=== PATIENT | male | born 1995 | race Caucasian/White ===

== ENCOUNTER 2021-09-05 15:56 | Emergency (ER) | payer BC, SELFPAY ==
[2021-09-05 16:10] VITALS: BP 144/90; PULSE 92; RESP 20; TEMP 36.7; O2SAT 97; BMI 20.7
--- NOTE | 2021-09-05 16:48 | HMH.EDUTC ---
[facility] [place] Disposition Clinical Impression: Exposure to COVID-19 virus Disposition: Home, Self-Care Condition on Discharge: Good Instructions: DI for COVID-19 (Suspected or Confirmed ), Preventing the Spread of Coronavirus Discharge Instructions Additional Instructions: *Monitor Temp, Over the counter Motrin or Tylenol as directed/as needed Tylenol every 4 hours and Motrin every 6 hours (as long as your family doctor has told you that you can take it) for fever or pain. and straight to ER if unable to lower temp less than 101.0 after medication given *Warm salt water gargles may help to soothe the throat *Throat Lozenges *Warm fluids like tea with honey may help to soothe the throat *Sleep elevated *Humidifier/Vaporizer Follow up IMMEDIATELY for new or worsening symptoms or no Noticeable improvement over the next 48-72 hours. 911 for difficulty breathing or swallowing You were tested for today for COVID19 your test result should be back in the next 24-48 hours, you may check your results on the [facility] Health Portal if you have trouble logging on you can call support or you will get a call if your results are Positive You was given a handout with instructions for Self Quarantine and Self isolation for while you wait on test results and what to do if they are positive If you are positive the Health Dept will be contacting you also Make sure to take your Vitamins Vit. C Vit D and Zinc if you can take them Referrals: Provider,Referral, [Primary Care Provider] - As needed Forms: Work/School Release Time of Disposition: 16:55 Medical Decision Making - Yadiel Inquiry Pt receiving controlled substance: No Yadiel was queried for this patient: No Vital Signs: 09/05/21 16:10 09/05/21 16:59 Temperature 98.1 F 98.1 F Temperature Source Oral Pulse Rate 92 H Pulse Rate [Left Brachial] 92 H Respiratory Rate 20 20 Blood Pressure 144/90 H Blood Pressure [Left Arm] 144/90 H Blood Pressure Mean [Left Arm] 108 Blood Pressure Source [Left Arm] Automatic Cuff Blood Pressure Position [Left Arm] Sitting 02 Sat by Pulse Oximetry 97 Oxygen Delivery Method Room Air Orders (Tests/Meds): ORDERS Category Date Time Status Covid-19 Nasal PCR ([facility]) Routine Lab 09/05/21 16:22 Received [facility] [place] HPI - General Stated complaint: covid test/treated for symptoms Time Seen by Provider: 09/05/21 16:48 Mode of Arrival: Ambulatory Source of Information: Patient Limitations: No Limitations Description of Symptoms (Recalled from Triage Doc. by RN): PATIENT C/O HEADACHE, FEVER, CHEST CONGESTION, AND METALLIC TASTE IN MOUTH X 5 DAYS. RECENTLY EXPOSED TO COVID HEENT Symptoms (Recalled from RN notes): Yes Resp Symptoms (Recalled from RN notes): Yes Skin Symptoms (Recalled from RN notes): No MS Symptoms (Recalled from RN notes): No Functional Status (Recalled from RN notes): WNL - History of Present Illness Provider Complaint: Patient state that father recently had COVID States that he has started having symptoms States that he feels like he has a bad sinus infection State that also feels like he is congested in his chest States that today he has had fever on and off and continued to feel worse so he came in to get checked - Related Data Home Medications Medication Instructions Recorded Confirmed Gabapentin [Gabapentin 100mg Cap] 100 mg PO HS 09/05/21 09/05/21 Allergies Allergy/AdvReac Type Severity Reaction Status Date / Time No Known Allergies Allergy Verified 09/05/21 16:32 - Worker's Comp Is this a Worker's Comp case?: No [facility] History - Hepatitis A Screen Drug use history?: No High risk sexual behaviors?: No History of sexually transmitted infection?: No Currently employed?: No Childcare worker?: No Do you have indoor plumbing?: Yes Do you have electricity?: Yes Attestation statement:: This patient has been screened for Hepatitis A risk factors. I have reviewed the patient's past medical history:
[2021-09-05 16:59] VITALS: BP 144/90; PULSE 92; RESP 20; TEMP 36.7; O2SAT 97
== END 2021-09-05 17:16 | disposition home or self-care (01) ==
PROVIDERS: Emergency Provider Nurse Practitioner
DX: U07.1 COVID-19 (principal)
CPT/HCPCS: 99202; C9803; G0463; U0003; U0005

== ENCOUNTER 2021-11-28 10:53 | Emergency (ER) | payer BC, SELFPAY ==
[2021-11-28 11:00] VITALS: BP 135/87; PULSE 85; RESP 18; TEMP 36.7; O2SAT 98; BMI 22.9
--- NOTE | 2021-11-28 11:14 | HMH.EDUTC ---
[facility] [place] Disposition Clinical Impression: URI (upper respiratory infection) Qualifiers: URI type: unspecified URI Qualified Code(s): J06.9 - Acute upper respiratory infection, unspecified Disposition: Home, Self-Care Condition on Discharge: Good Instructions: Sore Throat, Sinusitis, Cough, DI for Sinusitis, DI for Cough -- Adult Additional Instructions: *Monitor Temp, Over the counter Motrin or Tylenol as directed/as needed Tylenol every 4 hours and Motrin every 6 hours (as long as your family doctor has told you that you can take it) for fever or pain. and straight to ER if unable to lower temp less than 101.0 after medication given *Warm salt water gargles may help to soothe the throat *Throat Lozenges *Warm fluids like tea with honey may help to soothe the throat *Sleep elevated *Humidifier/Vaporizer Your throat swab was sent for culture. Those results are typically sent to your primary care. Be sure to follow up in 2-3 days with your family doctor/primary care physician if no improvement so they can review those result and treat if necessary. If you don?t have a primary care doctor, I recommend you get one but in the mean time, you will have to return to a walk in clinic Take Benzonate cough pills as prescribed Follow up IMMEDIATELY for new or worsening symptoms or no Noticeable improvement over the next 48-72 hours. 911 for difficulty breathing or swallowing Prescriptions: methylPREDNISolone [Medrol 4mg tab] 4 mg PO DIRECTED #21 tab Transmission Status: Pending to [facility] Azithromycin [Z-Kev 250mg Tab] 250 mg PO DIRECTED #6 tab [facility]: [facility] Referrals: Provider,Referral, [Primary Care Provider] - As needed Forms: Work/School Release Time of Disposition: 11:44 Medical Decision Making - Yadiel Inquiry Pt receiving controlled substance: No Yadiel was queried for this patient: No Vital Signs: 11/28/21 11:00 11/28/21 11:23 Temperature 98.0 F 98.0 F Temperature Source Oral Pulse Rate 85 Pulse Rate [Right Brachial] 85 Respiratory Rate 18 18 Blood Pressure 135/87 Blood Pressure [Right Arm] 135/87 Blood Pressure Mean [Right Arm] 103 Blood Pressure Source [Right Arm] Automatic Cuff Blood Pressure Position [Right Arm] Sitting 02 Sat by Pulse Oximetry 98 Oxygen Delivery Method Room Air - Lab Data Lab results reviewed: Yes: I reviewed the patient's lab results. Lab Results 11/28/21 11:18: Group A Strep Rapid Negative Orders (Tests/Meds): ORDERS Category Date Time Status Strep Screen Confirmation Stat Micro 11/28/21 11:18 Received [facility] [place] HPI - General Stated complaint: congestion cough Time Seen by Provider: 11/28/21 11:15 Mode of Arrival: Ambulatory Source of Information: Patient Limitations: No Limitations Description of Symptoms (Recalled from Triage Doc. by RN): PATIENT C/O COUGH AND CONGESTION X 1 WEEK HEENT Symptoms (Recalled from RN notes): Yes Resp Symptoms (Recalled from RN notes): Yes Skin Symptoms (Recalled from RN notes): No MS Symptoms (Recalled from RN notes): No Functional Status (Recalled from RN notes): wnl - History of Present Illness Provider Complaint: Patient states that he has been having cough, sinus congestion, sore throat and pressure behind his eyes for over a week States that he thought it was allergies and has been taking OTC meds but not helped much so today when he wasnt feeling any better he came in - Related Data Home Medications Medication Instructions Recorded Confirmed Gabapentin [Gabapentin 100mg Cap] 100 mg PO HS 09/05/21 09/05/21 Previous Rx's Medication Instructions Recorded Azithromycin [Z-Kev 250mg Tab] 250 mg PO DIRECTED #6 tab 11/28/21 methylPREDNISolone [Medrol 4mg 4 mg PO DIRECTED #21 tab 11/28/21 tab] Allergies Allergy/AdvReac Type Severity Reaction Status Date / Time No Known Allergies Allergy Verified 09/05/21 16:32 - Wo
[2021-11-28 11:23] VITALS: BP 135/87; PULSE 85; RESP 18; TEMP 36.7; O2SAT 98
[2021-11-28 11:38] LABS: Strep Scrn Group A (Rapid) Negative (Negative)
== END 2021-11-28 11:48 | disposition home or self-care (01) ==
PROVIDERS: Emergency Provider Nurse Practitioner
DX: J06.9 Acute upper respiratory infection, unspecified (principal); J02.9 Acute pharyngitis, unspecified
CPT/HCPCS: 87430; 99212; G0463

== ENCOUNTER 2021-12-18 13:54 | Emergency (ER) | payer BC, SELFPAY ==
[2021-12-18 14:09] VITALS: BP 127/75; PULSE 97; RESP 18; TEMP 36.8; O2SAT 100; BMI 23.6
--- NOTE | 2021-12-18 14:35 | HMH.EDUTC ---
[facility] [place] Disposition Clinical Impression: Need for Tdap vaccination Left corneal abrasion Qualifiers: Encounter type: initial encounter Qualified Code(s): S05.02XA - Injury of conjunctiva and corneal abrasion without foreign body, left eye, initial encounter Disposition: Home, Self-Care Condition on Discharge: Good Instructions: DI for Corneal Abrasion, Corneal Abrasion, How to Use Eye Ointments and Gels Additional Instructions: Apply the eye ointment as directed. Follow up with your eye doctor if not getting better within 48 hours. If you don't have an eye doctor that you see regularly, then I always suggest you follow up at the [facility]. Their phone number is . If you have worsening vision, severe eye pain or any other concerning symptoms, please go straight to the ER. Prescriptions: Erythromycin Base [Erythromycin 1gm opth ointment] 1 cm EYE-LEFT 5XDAY 7 Days #1 gm Transmission Status: Received by [facility] Referrals: Provider,Referral, MD [Primary Care Provider] - Forms: Work/School Release Time of Disposition: 15:47 Medical Decision Making - Medical Records Medical records reviewed: No: I reviewed the patient's medical records. - Yadiel Inquiry Pt receiving controlled substance: No Vital Signs: 12/18/21 14:09 12/18/21 16:02 Temperature 98.2 F 98.2 F Temperature Source Oral Pulse Rate 97 H Pulse Rate [Left] 97 H Respiratory Rate 18 18 Blood Pressure 127/75 Blood Pressure [Right Arm] 127/75 Blood Pressure Mean [Right Arm] 92 02 Sat by Pulse Oximetry 100 Orders (Tests/Meds): ED MEDICATIONS Discontinued Medications Generic Name Dose Route Start Last Admin Trade Name Sherlyn PRN Reason Stop Dose Admin Eye Irrigation Solution 120 ml 12/18/21 16:04 12/18/21 16:05 Eye Wash Irrigation Soln 118ml Bottle OP 12/18/21 16:05 118 ml ONCE ONE Administration Ibuprofen 800 mg 12/18/21 15:50 12/18/21 16:01 Ibuprofen 400 Mg Tablet PO 12/18/21 15:51 Not Given ONCE ONE Tetanus/Reduced Diphtheria/Acell Pertussis 0.5 ml 12/18/21 15:49 12/18/21 15:59 Tet/Diphth/Pert-Adult 0.5ml Syringe IM 12/18/21 15:50 0.5 ml .ONCE ONE Administration Tetrahydrozoline HCl 1 ml 12/18/21 16:05 12/18/21 16:06 Tetrahydrozoline Opth Mayra 15ml OP 12/18/21 16:06 1 ml ONCE ONE Administration [facility] [place] HPI - General Stated complaint: L eye pain Time Seen by Provider: 12/18/21 14:35 Mode of Arrival: Ambulatory Source of Information: Patient Limitations: No Limitations Description of Symptoms (Recalled from Triage Doc. 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 He thinks he got it out, but he has had irritation of that eye since. He denies any change in his vision, other than the excessive tearing. - Related Data Home Medications Medication Instructions Recorded Confirmed Gabapentin [Gabapentin 100mg Cap] 100 mg PO HS 09/05/21 09/05/21 Previous Rx's Medication Instructions Recorded Azithromycin [Z-Kev 250mg Tab] 250 mg PO DIRECTED #6 tab 11/28/21 methylPREDNISolone [Medrol 4mg 4 mg PO DIRECTED #21 tab 11/28/21 tab] Erythromycin Base [Erythromycin 1 cm EYE-LEFT 5XDAY 7 Days #1 gm 12/18/21 1gm opth ointment] Allergies Allergy/AdvReac Type Severity Reaction Status Date / Time No Known Allergies Allergy Verified 09/05/21 16:32 - Worker's Comp Is this a Worker's Comp case?: No Is this an H Worker's Comp?: No Is this a Peel Worker's Comp?: No [facility] History
[2021-12-18 16:02] VITALS: BP 127/75; PULSE 97; RESP 18; TEMP 36.8
== END 2021-12-18 16:36 | disposition home or self-care (01) ==
PROVIDERS: Emergency Provider Nurse Practitioner Family
DX: S05.02XA Injury of conjunctiva and corneal abrasion without foreign body, left eye, initial encounter (principal); Z79.52 Long term (current) use of systemic steroids; Z23 Encounter for immunization
CPT/HCPCS: 90471; 90715; 99213; G0463

== ENCOUNTER 2022-04-05 13:31 | Emergency (ER) | payer BC, SELFPAY ==
[2022-04-05 13:49] VITALS: BP 122/64; PULSE 98; RESP 17; TEMP 36.6; O2SAT 100; BMI 22.1
[2022-04-05 13:57] LABS: UTC Strep Screen (Rapid) Negative (Negative)
--- NOTE | 2022-04-05 14:15 | HMH.EDUTC ---
[facility] [place] Disposition Clinical Impression: Viral syndrome, Exposure to COVID-19 virus Disposition: Home, Self-Care Condition on Discharge: Good Instructions: DI for COVID-19 (Suspected or Confirmed ), Preventing the Spread of Coronavirus Discharge Instructions Additional Instructions: Drink plenty of fluids. Take tylenol or ibuprofen for pain or fever. Take the medications as directed. Follow up with your regular doctor. GO TO THE ER FOR ANY WORSENING SYMPTOMS Quarantine until you know the results of your covid-19 test. Notify your school or workplace of your results and follow their instructions regarding return to work/school. Prescriptions: Ondansetron [Zofran 4mg ODT] 4 mg PO Q8HP PRN #20 tab PRN Reason: Nausea Transmission Status: Received by [facility] Benzonatate [Benzonatate 100mg cap] 100 mg PO TIDP PRN #30 cap PRN Reason: Cough Transmission Status: Received by [facility] methylPREDNISolone [Medrol] 4 mg PO DIRECTED 6 Days #21 packet Transmission Status: Received by [facility] Referrals: Provider,Referral, [Primary Care Provider] - Forms: Work/School Release Time of Disposition: 14:21 Medical Decision Making - Medical Records Medical records reviewed: No: I reviewed the patient's medical records. - Yadiel Inquiry Pt receiving controlled substance: No Vital Signs: 04/05/22 13:49 04/05/22 14:22 Temperature 97.9 F 97.9 F Temperature Source Oral Pulse Rate 98 H Pulse Rate [Left] 98 H Respiratory Rate 17 17 Blood Pressure 122/64 Blood Pressure [Right Arm] 122/64 Blood Pressure Mean [Right Arm] 83 02 Sat by Pulse Oximetry 100 - Lab Data Lab results reviewed: Yes: I reviewed the patient's lab results. Lab Results 04/05/22 13:51: Strep Scn Rapid Clinic Negative [facility] [place] HPI - General Stated complaint: covid Time Seen by Provider: 04/05/22 14:16 Mode of Arrival: Ambulatory Source of Information: Patient Limitations: No Limitations Description of Symptoms (Recalled from Triage Doc. by RN): patient comes in for covid test. patient was exposed at a wedding last weekend and is now having headache and sore throat. HEENT Symptoms (Recalled from RN notes): Yes (LANE, sore throat) Resp Symptoms (Recalled from RN notes): No Skin Symptoms (Recalled from RN notes): No MS Symptoms (Recalled from RN notes): No Functional Status (Recalled from RN notes): n/a - History of Present Illness Provider Complaint: He states that he was around a person that had covid-19 6 days ago. Since yesterday he has had a scratchy throat, chills, chest congestion and a nonproductive cough. He denies any shortness of breath. - Related Data Home Medications Medication Instructions Recorded Confirmed Gabapentin [Gabapentin 100mg Cap] 100 mg PO HS 09/05/21 09/05/21 Previous Rx's Medication Instructions Recorded Azithromycin [Z-Kev 250mg Tab] 250 mg PO DIRECTED #6 tab 11/28/21 methylPREDNISolone [Medrol 4mg 4 mg PO DIRECTED #21 tab 11/28/21 tab] Erythromycin Base [Erythromycin 1 cm EYE-LEFT 5XDAY 7 Days #1 gm 12/18/21 1gm opth ointment] Benzonatate [Benzonatate 100mg 100 mg PO TIDP PRN #30 cap 04/05/22 cap] Ondansetron [Zofran 4mg ODT] 4 mg PO Q8HP PRN #20 tab 04/05/22 methylPREDNISolone [Medrol] 4 mg PO DIRECTED 6 Days #21 04/05/22 packet Allergies Allergy/AdvReac Type Severity Reaction Status Date / Time No Known Allergies Allergy Verified 04/05/22 13:52 - Worker's Comp Is this a Worker's Comp case?: No [facility] History - Hepatitis A Screen Attestation statement:: This patient has been screened for Hepatitis A risk factors. I have reviewed the patient's past medical history: Yes - Social History Smoking Status: Never smoker Tobacco Type: smokeless tobacco # Packs/Day (cigarettes): 0 Alcohol Intake: never Occupational Status: other ROS Obtained: Yes All systems reviewed & no additiona
[2022-04-05 14:22] VITALS: BP 122/64; PULSE 98; RESP 17; TEMP 36.6
== END 2022-04-05 14:25 | disposition home or self-care (01) ==
PROVIDERS: Emergency Provider Nurse Practitioner Family
DX: B34.9 Viral infection, unspecified (principal); R51.9 Headache, unspecified; J02.9 Acute pharyngitis, unspecified; R09.89 Other specified symptoms and signs involving the circulatory and respiratory systems; R05.9 Cough, unspecified; Z20.822 Contact with and (suspected) exposure to COVID-19
CPT/HCPCS: 87880; 99212; C9803; G0463; U0003; U0005

== ENCOUNTER 2022-08-08 08:42 | Emergency (ER) | payer BC, SELFPAY ==
[2022-08-08 08:50] VITALS: BP 141/76; PULSE 91; RESP 18; TEMP 36.7; O2SAT 99; BMI 22.6
--- NOTE | 2022-08-08 09:20 | EXP.UTC ---
Discharge Plan Disposition Patient Disposition: Home, Self-Care Condition: Good Prescriptions Prescriptions: New benzonatate 200 mg capsule 200 mg PO TID PRN (Reason: cough) Qty: 30 0RF doxycycline monohydrate 100 mg tablet 100 mg PO BID 10 Days Qty: 20 0RF methylprednisolone 4 mg Tablets,Dose Pack 4 mg PO DIRECTED Qty: 21 0RF Referrals Follow up/Referrals: Provider,Referral, MD [Primary Care Provider] - See instructions Activity Restrictions/Add. Instructions Additional Instructions/Restrictions: Take all meds as prescribed until gone Return to [facility] if not improving Clinical Impressions Clinical Impression: Bronchitis Stand Alone Forms Stand Alone Forms: Work/School Release Instructions Patient Instructions: DI for Acute Bronchitis Discharge ED Provider: Ruthie Wright [facility] [place] HPI General Stated complaint: Dry cough, chest congestion, headache Time Seen by Provider: 08/08/22 09:22 History of Present Illness Provider Complaint: Chest tightness, congestion, dry hacky cough X 4 days. Getting worse. No fever. Onset (ago): day(s) (4) Location: chest Relieving factors: none Exacerbating factors: none Associated symptoms: cough Treatments prior to arrival: none Related Data Previous Rx's Medication Instructions Recorded benzonatate 200 mg capsule 200 mg PO TID PRN cough #30 caps 08/08/22 doxycycline monohydrate 100 mg 100 mg PO BID 10 days #20 tabs 08/08/22 tablet methylprednisolone 4 mg tablets in 4 mg PO DIRECTED #21 tabs 08/08/22 a dose pack Allergies Allergy/AdvReac Type Severity Reaction Status Date / Time No Known Allergies Allergy Verified 04/05/22 13:52 [facility] Disclaimer: The information contained in this section may have been updated after the patient was seen, as this information can be updated by other users. Medical History (Updated 08/08/22 @ 09:28 by KESHIA Mark) Anxiety Depression Social History Smoking Status: Never smoker alcohol intake: never current occupational status: other Travel in the last 8 weeks: None ROS Obtained: Yes All systems reviewed & no additional complaints except as documented Constitutional Constitutional: Denies fever(s) Respiratory Respiratory: Reports chest congestion and Reports cough Physical Exam General General appearance: alert and in no apparent distress Head Head exam: atraumatic, normocephalic and normal inspection Eye Eye exam: Present normal appearance, PERRL and EOMI ENT ENT exam: Present normal exam, normal oropharynx, mucous membranes moist, TM's normal bilaterally and normal external ear exam Neck Neck exam: Present normal inspection, full ROM and trachea midline; Absent meningismus or lymphadenopathy Chest Chest inspection: Present normal inspection and symmetric chest wall rise; Absent tenderness Respiratory Respiratory exam: Present wheezes; Absent respiratory distress Cardiovascular Cardiovascular exam: Present regular rate and normal rhythm; Absent JVD Abdominal Exam Abdominal exam: Present soft and normal bowel sounds; Absent distention, tenderness or guarding Extremities Exam Extremities exam: Present normal inspection, full ROM and normal capillary refill; Absent calf tenderness Back Exam Back exam: Present normal inspection; Absent tenderness Neurological Exam Neurological exam: Present alert and oriented X3 Psychiatric Psychiatric exam: Present normal affect and normal mood Skin Skin exam: Present warm, dry, intact and normal color Lymphatic Lymphatic Findings: no adenopathy Medical Decision Making Yadiel Inquiry Pt receiving controlled substance: No
[2022-08-08 09:42] VITALS: BP 141/76; PULSE 91; RESP 18; TEMP 36.7; O2SAT 99
== END 2022-08-08 09:45 | disposition home or self-care (01) ==
PROVIDERS: Emergency Provider Physician Assistant
DX: J40 Bronchitis, not specified as acute or chronic (principal)
CPT/HCPCS: 99212; G0463

== ENCOUNTER 2022-08-21 09:20 | Emergency (ER) | payer BC, SELFPAY ==
[2022-08-21 09:25] VITALS: BP 140/78; PULSE 102; RESP 19; TEMP 37.6; O2SAT 100; BMI 22.4
--- NOTE | 2022-08-21 09:36 | EXP.UTC ---
Discharge Plan Disposition Patient Disposition: Home, Self-Care Prescriptions Prescriptions: No Action benzonatate 200 mg capsule 200 mg PO TID PRN (Reason: cough) Qty: 30 0RF doxycycline monohydrate 100 mg tablet 100 mg PO BID 10 Days Qty: 20 0RF methylprednisolone 4 mg Tablets,Dose Pack 4 mg PO DIRECTED Qty: 21 0RF Referrals Follow up/Referrals: Provider,Referral, MD [Primary Care Provider] - See instructions Activity Restrictions/Add. Instructions Additional Instructions/Restrictions: Too late to start Tamiflu. Most effective when started within 48 hours of symptoms onset Lots of rest Increase Fluids water, Gatorade, powerade, pedialyte,if infant/toddler/child Alternate Tylenol and / or ibuprofen as discussed for fever, aches, chills Follow up IMMEDIATELY with your family doctor for new or worsening Symptoms OR no noticeable improvement over the next 48-72 hours, 911 for difficulty or breathing You or your child area contagious until no fever, aches, chills for 24 hours with medication for symptoms Help Prevent the spread of influenza: ?Wash your hands often. Use soap and water. Wash your hands after you use the bathroom, change a child's diapers, or sneeze. Wash your hands before you prepare or eat food. Use gel hand cleanser that has 60% alcohol, when soap and water are not available. Do not touch your eyes, nose, or mouth unless you have washed your hands first. Cover your mouth when you sneeze or cough. Cough into a tissue or the bend of your arm. If you use a tissue, throw it away immediately and wash your hands. Clean shared items with a germ-killing millstone cleaner. Clean table surfaces, doorknobs, and light switches. Do not share towels, silverware, and dishes with people who are sick. Wash bed sheets, towels, silverware, and dishes with soap and water. Wear a mask over your mouth and nose if you are sick. The face mask may help protect others from becoming infected with the flu. Wear the mask when in common areas of your home or if you seek care with a healthcare provider. Stay away from others if you are sick. Stay at home until 24 hours after your fever and symptoms are gone. Clinical Impressions Clinical Impression: Influenza A Stand Alone Forms Stand Alone Forms: Work/School Release Instructions Patient Instructions: DI for Influenza -- Adult, DI for Fever (Symptom) -- Adult Discharge ED Provider: Azalea Arias [facility] [place] General Stated complaint: Fever, chills, bodyaches Time Seen by Provider: 08/21/22 09:36 History of Present Illness Provider Complaint: Patient states that he has been having fever, chills, and body aches for the last couple of days States today he was feeling worse Related Data Allergies Allergy/AdvReac Type Severity Reaction Status Date / Time No Known Allergies Allergy Verified 04/05/22 13:52 [facility] Disclaimer: The information contained in this section may have been updated after the patient was seen, as this information can be updated by other users. Medical History (Updated 08/21/22 @ 09:42 by Azalea Arias APRN) Anxiety Depression Social History (Updated 08/08/22 @ 09:23 by Abigail Santiago RN) Smoking Status: Never smoker alcohol intake: never current occupational status: other Travel in the last 8 weeks: None ROS Obtained: Yes All systems reviewed & no additional complaints except as documented and Yes Systems reviewed as appropriate & no additional complaints except as documented Constitutional Constitutional: Reports system reviewed and no additional complaints, except as documented, Reports as per HPI, Reports body ache, Reports chills and Reports fever(s) ENT Ears, Nose, Mouth, and Throat: Reports system reviewed and no additional complaints, except as documented, Reports as per HPI
[2022-08-21 09:38] LABS: UTC Influenza A Antigen Positive (Negative)
[2022-08-21 09:39] LABS: UTC Influenza B Antigen Negative (Negative)
[2022-08-21 09:44] VITALS: BP 140/78; PULSE 102; RESP 19; TEMP 37.6; O2SAT 100
== END 2022-08-21 09:56 | disposition home or self-care (01) ==
PROVIDERS: Emergency Provider Nurse Practitioner
DX: J10.1 Influenza due to other identified influenza virus with other respiratory manifestations (principal)
CPT/HCPCS: 87804; 99212; G0463

== ENCOUNTER 2022-12-25 09:49 | Emergency (ER) | payer BC, SELFPAY ==
--- NOTE | 2022-12-25 09:55 | XR_ITS ---
FINAL REPORT CLINICAL HISTORY: PAIN FINDINGS: Left knee Three views were obtained. There is no acute fracture or dislocation. The joint spaces appear normal. No joint effusion is identified. No soft tissue abnormality is identified. IMPRESSION: No acute process. Reviewed, Interpreted and Dictated by Joao Quesada MD Transcribed by Yu Pitts Authenticated and . [facility]
[2022-12-25 10:18] VITALS: BP 134/75; PULSE 89; RESP 17; TEMP 36.6; O2SAT 99; BMI 27.4
--- NOTE | 2022-12-25 10:39 | EXP.UTC ---
Discharge Plan Disposition Patient Disposition: Home, Self-Care Condition: Good Referrals Follow up/Referrals: Provider,Referral, [Primary Care Provider] - See instructions Activity Restrictions/Add. Instructions Additional Instructions/Restrictions: *weight bearing as tolerated *RICE, Rest the extremity, Ice 15-20 minutes 3-4 times daily, Compress- wear the cesar wrap as discussed as much as possible to help reduce swelling and pain, Elevate the extremity when at rest *Cesar wrap is for support and help control swelling, use it except in the shower. Be sure that is not to tight but not to loose either *Elevate when resting? *Ibuprofen 600-800mg every 6-8 hours as needed for pain an inflammation. If need something more can take Tylenol in between doses of Ibuprofen to help Clinical Impressions Clinical Impression: Knee strain Qualifiers: Encounter type: initial encounter Laterality: left Qualified Code(s): S86.912A - Strain of unspecified muscle(s) and tendon(s) at lower leg level, left leg, initial encounter Stand Alone Forms Stand Alone Forms: Work/School Release Instructions Patient Instructions: DI for Knee Pain, How To Perform RICE (Rest, Ice, Compress, Elevate) Discharge ED Provider: Azalea Arias [facility] [place] General Stated complaint: LT knee pain Mode of Arrival: Ambulatory Source of Information: Patient Limitations: No Limitations Time Seen by Provider: 12/25/22 10:39 Description of Symptoms (Recalled from Triage Doc. by RN): pt states he recently started a new job and has been putting more stress on his L knee. pt c/o L knee pain [id number]. pt denies any injury. 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 Medical History (Updated 12/25/22 @ 11:41 by Azalea Arias APRN) Anxiety Depression Social History (Updated 08/21/22 @ 09:42 by Abigail Santiago RN) Smoking Status: Never smoker alcohol intake: never current occupational status: other Travel in the last 8 weeks: None ROS Obtained: Yes All systems reviewed & no additional complaints except as documented and Yes Systems reviewed as appropriate & no additional complaints except as documented Constitutional Constitutional: Reports system reviewed and no additional complaints, except as documented, Reports as per HPI and Denies fever(s) ENT Ears, Nose, Mouth, and Throat: Reports system reviewed and no additional complaints, except as documented and Reports as per HPI Cardiovascular Cardiovascular: Reports system reviewed and no additional complaints, except as documented and Reports as per HPI Respiratory Respiratory: Reports system reviewed and no additional complaints, except as documented and Reports as per HPI Gastrointestinal Gastrointestingal: Reports system reviewed and no additional complaints, except as documented and as per HPI Musculoskeletal Musculoskeletal: Reports system reviewed and no additional complaints, except as documented and Reports as per HPI Comments: Pain in left knee for 2 weeks that started after starting ne
[2022-12-25 11:53] VITALS: BP 134/75; PULSE 89; RESP 17; TEMP 36.6
== END 2022-12-25 11:55 | disposition home or self-care (01) ==
PROVIDERS: Emergency Provider Nurse Practitioner
DX: S83.92XA Sprain of unspecified site of left knee, initial encounter (principal); X50.9XXA Other and unspecified overexertion or strenuous movements or postures, initial encounter
CPT/HCPCS: 73562; 99212; 99213; 99214; G0463

== ENCOUNTER 2023-01-09 10:55 | Emergency (ER) | payer BC, SELFPAY ==
[2023-01-09 11:05] VITALS: BP 151/79; PULSE 80; RESP 22; TEMP 36.8; O2SAT 98; BMI 25.3
--- NOTE | 2023-01-09 11:14 | EXP.UTC ---
Discharge Plan Disposition Patient Disposition: Home, Self-Care Condition: Good Prescriptions Prescriptions: New azithromycin [Zithromax] 250 mg tablet 250 mg PO UD DOSE PK Qty: 6 0RF Rx Instructions: Take two (2) tablets today, then one (1) tablet days #2 thru #5 benzonatate [benzonatate] 100 mg capsule 100 mg PO TIDP PRN (Reason: Cough) Qty: 30 0RF methylprednisolone 4 mg Tablets,Dose Pack 4 mg PO DIRECTED Qty: 21 0RF Referrals Follow up/Referrals: Provider,Referral, MD [Primary Care Provider] - See instructions Activity Restrictions/Add. Instructions Additional Instructions/Restrictions: Drink plenty of fluids. Take tylenol or ibuprofen for pain or fever. Take the medications as directed. Follow up with your regular doctor. GO TO THE ER FOR ANY WORSENING SYMPTOMS Clinical Impressions Clinical Impression: Sinusitis Stand Alone Forms Stand Alone Forms: Work/School Release Instructions Patient Instructions: DI for Sinusitis Discharge ED Provider: Rubio Cisneros [facility] General Stated complaint: chest congestion, cough Time Seen by Provider: 01/09/23 11:13 History of Present Illness Provider Complaint: He states that for the past several days he has had sinus congestion, drainage, and chest congestion. He is starting to feel worse today, so he came in to be checked. Related Data Previous Rx's Medication Instructions Recorded azithromycin 250 mg tablet 250 mg PO UD DOSE PK #6 tabs 01/09/23 (Zithromax) benzonatate 100 mg capsule 100 mg PO TIDP PRN Cough #30 caps 01/09/23 methylprednisolone 4 mg tablets in 4 mg PO DIRECTED #21 tabs 01/09/23 a dose pack Allergies Allergy/AdvReac Type Severity Reaction Status Date / Time No Known Allergies Allergy Verified 04/05/22 13:52 [facility] Disclaimer: The information contained in this section may have been updated after the patient was seen, as this information can be updated by other users. Medical History Anxiety Depression Social History Smoking Status: Never smoker alcohol intake: never current occupational status: other Travel in the last 8 weeks: None ROS Obtained: Yes All systems reviewed & no additional complaints except as documented Constitutional Constitutional: Reports poor appetite Eyes Eyes: Reports system reviewed and no additional complaints, except as documented ENT Ears, Nose, Mouth, and Throat: Reports as per HPI Cardiovascular Cardiovascular: Reports system reviewed and no additional complaints, except as documented and Denies chest pain Respiratory Respiratory: Denies shortness of breath, Denies chest congestion, Reports cough, Denies stridor and Denies wheezing Gastrointestinal Gastrointestingal: Reports system reviewed and no additional complaints, except as documented; Denies abdominal pain, diarrhea or vomiting Musculoskeletal Musculoskeletal: Reports system reviewed and no additional complaints, except as documented and Denies arthralgias Integumentary/Breasts Skin/Breast: Reports system reviewed and no additional complaints, except as documented and Denies rash Neurologic Neurologic: Denies paresthesias Allergic/Immunologic Allergic/Immunologic: Denies wheezing Physical Exam General General appearance: alert and in no apparent distress Eye Eye exam: Present normal appearance, PERRL and EOMI ENT ENT exam: Present mucous membranes moist and normal external ear exam Expanded ENT Exam External ear exam: Present normal external inspection TM/Canal exam: Bilateral TM: erythema and bulging Nose exam: Absent sinus tenderness Nasal speculum exam: Bilateral: normal Mouth exam: Present normal external inspection; Absent drooling Teeth exam: Present normal inspection Throat exam: Present tonsillar erythema and tonsillomegaly Neck Neck exam: Present normal inspection, f
[2023-01-09 11:30] VITALS: BP 151/79; PULSE 80; RESP 22; TEMP 36.8; O2SAT 98
== END 2023-01-09 11:46 | disposition home or self-care (01) ==
PROVIDERS: Emergency Provider Nurse Practitioner Family
DX: J01.90 Acute sinusitis, unspecified (principal); F41.9 Anxiety disorder, unspecified; F32.9 Major depressive disorder, single episode, unspecified
CPT/HCPCS: 99212; 99214; G0463

== ENCOUNTER 2024-05-27 16:49 | Emergency (ER) | payer BC, SELFPAY ==
[2024-05-27 17:14] VITALS: BP 126/86; PULSE 85; RESP 16; TEMP 36.6; O2SAT 98; BMI 25.8
--- NOTE | 2024-05-27 17:19 | ED_ITS ---
Discharge Plan Disposition Patient Disposition: Home, Self-Care Condition: Good Prescriptions Prescriptions: New methylprednisolone [Medrol (Kev)] 4 mg tablets,dose pack See Rx Instructions .Route .COMPLEX 6 Days Qty: 21 0RF Rx Instructions: taper pack; amoxicillin-pot clavulanate 875-125 mg Tablet 1 tab PO Q12H 7 Days Qty: 14 0RF No Action azithromycin [Zithromax] 250 mg tablet 250 mg PO UD DOSE PK Qty: 6 0RF Rx Instructions: Take two (2) tablets today, then one (1) tablet days #2 thru #5 benzonatate [benzonatate] 100 mg capsule 100 mg PO TIDP PRN (Reason: Cough) Qty: 30 0RF methylprednisolone 4 mg Tablets,Dose Pack 4 mg PO DIRECTED Qty: 21 0RF Referrals Follow up/Referrals: Provider,Referral, MD [Primary Care Provider] - See instructions Activity Restrictions/Add. Instructions Additional Instructions/Restrictions: *Monitor Temp, Over the counter Motrin or Tylenol as directed/as needed Tylenol every 4 hours and Motrin every 6 hours (as long as your family doctor has told you that you can take it) for fever or pain. and straight to ER if unable to lower temp less than 101.0 after medication given *Warm salt water gargles may help to soothe the throat *Throat Lozenges? *Warm fluids like tea with honey may help to soothe the throat? *Sleep elevated *Humidifier/Vaporizer Take medication as prescribed Follow up IMMEDIATELY for new or worsening symptoms or no Noticeable improvement over the next 48-72 hours. 911 for difficulty breathing or swallowing Clinical Impressions Clinical Impression: Sinusitis Instructions Patient Instructions: DI for Sinusitis, Sinusitis Print Language Print Language: Chinese Discharge ED Provider: Azaela Arias [facility] General Stated complaint: poss sinus inf Mode of Arrival: Ambulatory Source of Information: Patient Limitations: No Limitations Time Seen by Provider: 05/27/24 17:19 Description of Symptoms (Recalled from Triage Doc. by RN): Reports congestion and pressure behind his eyes. HEENT Symptoms (Recalled from RN notes): Yes Resp Symptoms (Recalled from RN notes): No Skin Symptoms (Recalled from RN notes): No MS Symptoms (Recalled from RN notes): No Functional Status (Recalled from RN notes): wnl History of Present Illness Provider Complaint: Patient states for over a week he has been having sinus pain and pressure and pressure behind his eyes States it has continued to get worse so today he came in to get checked Related Data Previous Rx's ?Medication ?Instructions ?Recorded azithromycin 250 mg tablet 250 mg PO UD DOSE PK #6 tabs 01/09/23 (Zithromax) benzonatate 100 mg capsule 100 mg PO TIDP PRN Cough #30 caps 01/09/23 methylprednisolone 4 mg tablets in 4 mg PO DIRECTED #21 tabs 01/09/23 a dose pack amoxicillin 875 mg-potassium 1 tab PO Q12H 7 days #14 tabs 05/27/24 clavulanate 125 mg tablet methylprednisolone 4 mg tablets in See Rx Instructions .Route 05/27/24 a dose pack (Medrol (Kev)) .COMPLEX 6 days #21 tabs Allergies Allergy/AdvReac Type Severity Reaction Status Date / Time No Known Allergies Allergy Verified 04/05/22 13:52 Worker's Comp Is this a Worker's Comp case?: No [facility] Disclaimer: The information contained in this section may have been updated after the patient was seen, as this information can be updated by other users. Medical History Anxiety Depression Social History Smoking Status: Never smoker alcohol intake: never current occupational status: other Travel in the last 8 weeks: None ROS Obtained: Yes All systems reviewed & no additional complaints except as documented and Yes Systems reviewed as appropriate & no additional complaints except as documented Constitutional Constitutional: Reports system reviewed and no additional complaints, except as documented, Reports as per HPI and Reports headache(s) ENT Ears, Nose, Mouth, and Throat: Reports system reviewed and no additional complaints, except as documented, Reports as per HPI, Reports headache(s), Reports sinus pain and Reports sinus pressure Cardiovascular Cardiovascular: Reports system reviewed and no additional complaints, except as documented and Reports as per HPI Respiratory Respiratory: Reports system reviewed and no additional complaints, except as documented and Reports as per HPI Gastrointestinal Gastrointestingal: Reports system reviewed and no additional complaints, except as documented and as per HPI Neurologic Neurologic: Reports headache(s) Physical Exam General General appearance: alert and in no apparent distress ENT ENT exam: Present mucous membranes moist Expanded ENT Exam Nose exam: Present sinus tenderness Throat exam: Present other (PND noted) Respiratory Respiratory exam: Present normal lung sounds bilaterally; Absent respiratory distress or wheezes Cardiovascular Cardiovascular exam: Present regular rate, normal rhythm and normal heart sounds Abdominal Exam Abdominal exam: Present soft and normal bowel sounds; Absent distention or tenderness Neurological Exam Neurological exam: Present alert, oriented X3 and normal gait Medical Decision Making Medical Records Screening: Per USPSTF and CDC recommendations, given the prevalence of disease in our region, it is our hospital?s policy to screen for HIV and viral Hepatitis for all patients aged 18 and over and those with ongoing risk factors. Yadiel Inquiry Pt receiving controlled substance: No Yadiel was queried for this patient: No Vital Signs: 05/27/24 17:14 Temperature 97.9 F Temperature Source Oral Pulse Rate [Radial] 85 Respiratory Rate 16 Blood Pressure [Right Arm] 126/86 Blood Pressure Mean [Right Arm] 99 Blood Pressure Source [Right Arm] Automatic Cuff Blood Pressure Position [Right Arm] Sitting 02 Sat by Pulse Oximetry 98 Oxygen Delivery Method Room Air
[2024-05-27 17:32] VITALS: BP 126/86; PULSE 85; RESP 16; TEMP 36.6; O2SAT 98
== END 2024-05-27 17:33 | disposition home or self-care (01) ==
PROVIDERS: Emergency Provider Nurse Practitioner
DX: J32.9 Chronic sinusitis, unspecified (principal); R09.81 Nasal congestion
CPT/HCPCS: 99212; G0381